=== PATIENT | male | born 1995 | race African-American/Black ===

== ENCOUNTER 2017-10-02 01:03 | Emergency (ER) | payer OTHER ==
[~2017-10-02] VITALS: Ht 185.4 cm; Wt 127.0 kg
--- NOTE | 2017-10-02 02:24 | NUR ---
Patient discharged to home in stable conditon. Written and verbal after care instructions given. Patient verbalizes understanding of instructions. Ambulated from ER with stable gait. All belongings with patient.
[2017-10-02 02:38] VITALS: BP 137/78
== END 2017-10-02 02:38 | disposition home or self-care (01) ==
LOC: ER 01:06
DX: G89.4 Chronic pain syndrome (principal); Z76.0 Encounter for issue of repeat prescription
CPT/HCPCS: A4663